=== PATIENT | male | born 1995 | race African-American/Black ===

== ENCOUNTER 2020-06-11 18:44 | Emergency (ER) | payer SELFPAY ==
[~2020-06-11] VITALS: Ht 180.3 cm; Wt 72.6 kg
[2020-06-11] MEDS ORDERED: KEPPRA (18:54)
--- NOTE | 2020-06-11 18:59 | NUR ---
PT IS IN ROOM #1A. DR SOUZA EVALUATED THE PT.
[2020-06-11] MEDS ORDERED: levETIRAcetam 500 MG/5 ML VIAL IV ONE (19:17)
[2020-06-11] MEDS: levETIRAcetam IV 1,000 MG in IV DEXTROSE 5% 100 ML IV ONE (19:19)
[2020-06-11 19:54] LABS: BASOPHILS % (AUTO) 0.4 % (0.0-2.0); HEMATOCRIT 37.9 % (36.7-47.1); HEMOGLOBIN 12.4 g/dL (12.5-16.3); LYMPHOCYTES # (AUTO) 1.3 K/uL (20.0-40.0); LYMPHOCYTES % (AUTO) 14.8 % (20.5-51.5); MEAN CORPUSCULAR HEMOGLOBIN 27.8 uug (23.8-33.4); MEAN CORPUSCULAR HGB CONC 33 g/dL (32.5-36.3); MONOCYTES # (AUTO) 0.4 K/uL (2.0-10.0); MONOCYTES % (AUTO) 4.4 % (0.0-11.0); NEUTROPHILS # (AUTO) 7.2 K/uL (1.8-8.9); NEUTROPHILS % (AUTO) 80.4 % (38.5-71.5); PLATELET COUNT (AUTO) 157 K/uL (152-348); RED BLOOD CELL COUNT(AUTO) 4.46 MIL/uL (4.06-5.63)
[2020-06-11] MEDS: ONDANSETRON 4 MG/2 ML VIAL IV ONE ×2 (19:58→21:22)
[2020-06-11 20:09] LABS: ALANINE AMINOTRANSFERASE 16 U/L (16-63); ALKALINE PHOSPHATASE 65 U/L (50-136); ASPARTATE AMINOTRANSFERASE 21 U/L (15-37); BILIRUBIN,DIRECT 0.2 mg/dL (0.0-0.2); BILIRUBIN,TOTAL 0.9 mg/dL (0.2-1.0); CARBON DIOXIDE 26 mmol/L (21-32); CHLORIDE 104 mmol/L (98-107); CREATININE 0.9 mg/dL (0.6-1.3); GLUCOSE 119 mg/dL (74-106); POTASSIUM 3.2 mmol/L (3.5-5.1); TOTAL PROTEIN, SERUM 6.9 g/dL (6.4-8.2); UREA NITROGEN, BLOOD 8 mg/dL (7-18)
[2020-06-11 20:13] LABS: ETHANOL < 3 MG/DL (0-0)
[2020-06-11] MEDS ORDERED: POTASSIUM CHLORIDE 20 MEQ TAB.PRT.SR ONE (20:50)
[2020-06-11] MEDS: POTASSIUM CHLORIDE 20 MEQ TAB.PRT.SR PO ONE (20:51)
[2020-06-11] MEDS ORDERED: ONDANSETRON 4 MG/2 ML VIAL ONE (20:58)
[2020-06-11 22:14] VITALS: BP 139/93
--- NOTE | 2020-06-11 22:14 | NUR ---
Patient discharged to home in stable condition. Written and verbal after care instructions given. Patient verbalizes understanding of instructions. Stressed follow up or return to ER for worsening s/s. patient left with stable gait.
== END 2020-06-11 22:15 | disposition home or self-care (01) ==
LOC: ER 18:47
DX: G40.909 Epilepsy, unspecified, not intractable, without status epilepticus (principal); E87.6 Hypokalemia; R03.0 Elevated blood-pressure reading, without diagnosis of hypertension; R73.9 Hyperglycemia, unspecified
CPT/HCPCS: 36415; 80048; 80076; 80307; 82962; 85025; 96365; 96375; 96376; 99284; J1953; J2405; J7060; A4663; G0480